=== PATIENT | male | born 1955 | race Caucasian/White ===

== ENCOUNTER 2021-07-13 10:47 | Emergency (ER) | payer OTHER ==
[2021-07-13 12:20] LABS: BASOPHIL 0.9 % (0-2); EOSINOPHIL 2.3 % (0-7); HCT 41.8 % (42.0-52.0); HGB 13.8 g/dl (13.2-18.0); LYMPHOCYTE 21.3 % (15-48); MCH 30.1 pg (25.0-31.0); MCV 91.1 fL (78.0-100.0); MONOCYTE 6.5 % (0-12); MPV 9.3 fL (6.0-9.5); NEUTROPHIL 68.7 % (41-80); NRBC 0; PLT 252 K/uL (150-400); RBC 4.59 M/uL (4.70-6.00); RDW 12.3 % (11.5-14.0); WBC 6.9 K/uL (4.0-10.5)
[2021-07-13 12:29] LABS: BUN/CREAT RATIO (CALC) 19.7 RATIO; CREATININE 0.76 mg/dL (0.67-1.17); POTASSIUM 3.3 mmol/L (3.5-5.1)
[2021-07-13] MEDS ORDERED: VENTOLIN HFA IN18 GM INH (13:13)
[2021-07-13] MEDS ORDERED: PREDNISONE 20MG20 MG PO (13:13)
== END 2021-07-13 13:52 | disposition home or self-care (01) ==
LOC: FER 10:47
PROVIDERS: Emergency Medicine
DX: J44.1 Chronic obstructive pulmonary disease with (acute) exacerbation (principal); I10 Essential (primary) hypertension; Z20.822 Contact with and (suspected) exposure to COVID-19; Z87.891 Personal history of nicotine dependence; Z88.0 Allergy status to penicillin; Z88.8 Allergy status to other drugs, medicaments and biological substances
CPT/HCPCS: 36415; 71045; 80048; 85025; 94640; 94664; J2930; U0002

== ENCOUNTER 2021-09-25 07:43 | Emergency (ER) | payer OTHER ==
[~2021-09-25] VITALS: Ht 172.7 cm; Wt 113.4 kg
[~2021-09-25 07:43] MED LIST: PREDNISONE 20MG20 MG PO; VENTOLIN HFA IN18 GM INH
[2021-09-25 08:12] LABS: BILIRUBIN NEGATIVE (NEGATIVE); BLOOD 2+ Ery/uL (NEGATIVE); CLARITY CLEAR (CLEAR); COLOR YELLOW (YELLOW); GLUCOSE (U) 3+ mg/dL (NORMAL); LEUKOCYTES NEGATIVE Leu/uL (NEGATIVE); NITRITE NEGATIVE (NEGATIVE); PROTEIN NEGATIVE (NEGATIVE); SPECIFIC GRAVITY 1.015 (1.001-1.030); UROBILINOGEN 0.2 mg/dL (0.2-1.0)
[2021-09-25 08:19] LABS: SQUAMOUS EPITHELIAL CELLS RARE
[2021-09-25 08:44] LABS: BASOPHIL 0.7 % (0-2); EOSINOPHIL 2.2 % (0-7); HCT 43.9 % (42.0-52.0); HGB 14.6 g/dl (13.2-18.0); LYMPHOCYTE 15.5 % (15-48); MCH 30.6 pg (25.0-31.0); MCHC 33.3 g/dL (32.0-36.0); MONOCYTE 6.4 % (0-12); MPV 9.6 fL (6.0-9.5); NRBC 0; PLT 230 K/uL (150-400); RBC 4.77 M/uL (4.70-6.00); RDW 12.8 % (11.5-14.0); WBC 8.7 K/uL (4.0-10.5)
[2021-09-25 09:17] LABS: ALBUMIN 3.7 g/dL (3.4-5.0); BILIRUBIN - TOTAL 0.6 mg/dL (0.2-1.0); BUN/CREAT RATIO (CALC) 19.6 RATIO; CREATININE 0.92 mg/dL (0.67-1.17); GLOBULIN (CALCULATION) 3.2 g/dL; PHOSPHORUS 4.3 mg/dL (2.6-4.7); POTASSIUM 3.8 mmol/L (3.5-5.1); TOTAL PROTEIN 6.9 g/dL (6.4-8.2)
[2021-09-25 09:18] LABS: INR 1.1 (0.9-1.2); PROTHROMBIN TIME 13.6 SECONDS (11.8-13.4); PTT 28.5 SECONDS (24.4-34.7)
[2021-09-25] MEDS ORDERED: FLEXERIL5 MG PO (09:58)
== END 2021-09-25 10:14 | disposition home or self-care (01) ==
LOC: FER 07:43
PROVIDERS: Internal Medicine
DX: M54.14 Radiculopathy, thoracic region (principal); I11.0 Hypertensive heart disease with heart failure; I50.9 Heart failure, unspecified; E11.9 Type 2 diabetes mellitus without complications; J44.9 Chronic obstructive pulmonary disease, unspecified; Z88.0 Allergy status to penicillin; Z88.8 Allergy status to other drugs, medicaments and biological substances; Z79.01 Long term (current) use of anticoagulants; Z79.899 Other long term (current) drug therapy
CPT/HCPCS: 36415; 80053; 81001; 84100; 85025; 85610; 85730